=== PATIENT | female | born 1960 | race Caucasian/White ===

== ENCOUNTER 2018-09-04 06:18 | Emergency (ER) | payer OTHER ==
[2018-09-04 06:45] VITALS: BP 97/71; PULSE 96; TEMP 98.3; BMI 19.3
--- NOTE | 2018-09-04 06:54 | PDOC ---
History of Present Illness - General Chief Complaint: Respiratory Stated Complaint: SENT BY PCP Time Seen by Provider: 09/04/18 06:48 History Source: Patient - History of Present Illness Initial Comments: 09/04/18 06:51 58yoF hx of MVP presnets w/ sudden onset of SOB and epigastric pain on 08/22. Has been seeing multiple physicians for this and was sent by a senior network security architect to the ER for "CT r/o PE". Also is scheduled for a urea breath test, has been on an albuterol MDI wihout improveemnt in symptoms. No hx of AR, symptoms are constant, non-pleuritic. No travel, no hormones, no surgery, no syncope, no palps. Past History - Past Medical History Allergies/Adverse Reactions: Allergies Allergy/AdvReac Type Severity Reaction Status Date / Time amoxicillin [Amoxicillin] Allergy Rash Verified 09/04/18 06:38 clarithromycin [From Biaxin] Allergy Swelling Verified 09/04/18 06:38 dicloxacillin Allergy Verified 09/04/18 06:40 Home Medications: Ambulatory Orders Lidocaine 5% Top. Ointment [Xylocaine 5% Top. Ointment -] 1 applic TP QID #1 tube 11/09/15 Oxycodone HCl/Acetaminophen [Percocet 5/325 -] 1 tab PO Q4H PRN #10 tablet MDD 1 11/09/15 Anemia: No Asthma: No Cancer: No Cardiac Disorders: Yes (MITRAL VALVE PROLAPSE) CVA: No COPD: No CHF: No Dementia: No Diabetes: No (LOW BLOOD SUGAR) GI Disorders: No Disorders: No HTN: No Hypercholesterolemia: No Liver Disease: No Seizures: No Thyroid Disease: No - Surgical History Abdominal Surgery: No Appendectomy: No Cardiac Surgery: No Cholecystectomy: No Lung Surgery: No Neurologic Surgery: No Orthopedic Surgery: No - Immunization History Td Vaccination: Yes TDAP Vaccination: Yes Immunization Up to Date: Yes - Suicide/Smoking/Psychosocial Hx Smoking Status: No Smoking History: Never smoked Have you smoked in the past 12 months: No Number of Cigarettes Smoked Daily: 0 Information on smoking cessation initiated: No Hx Alcohol Use: No Drug/Substance Use Hx: No Substance Use Type: None Review of Systems - Review of Systems All Other Systems: Reviewed and Negative *Physical Exam - Vital Signs Last Vital Signs Temp Pulse Resp BP Pulse Ox 98.3 F 96 H 18 97/71 100 09/04/18 06:25 09/04/18 06:25 09/04/18 06:25 09/04/18 06:25 09/04/18 06:25 - Physical Exam Comments: 09/04/18 06:52 NAD, well appearing, anxious, thin woman MMM RRR CTABL, no w/r/r, no crackles soft NTND no edema A&O x 3. Moderate Sedation - Procedure Monitoring Vital Signs: Procedure Monitoring Vital Signs Temperature 98.3 F 09/04/18 06:25 Pulse Rate 96 H 09/04/18 06:25 Respiratory Rate 18 09/04/18 06:25 Blood Pressure 97/71 09/04/18 06:25 O2 Sat by Pulse Oximetry (%) 100 09/04/18 06:25 ED Treatment Course - RADIOLOGY Radiology Studies Ordered: Category Date Time Status CHEST CTA [CT] Urgent CT Scan 09/04/18 06:49 Ordered Medical Decision Making - Medical Decision Making 09/04/18 06:53 58yoF in good health undergoing extensive outaptient evaluation for sudden onset of epig pain and sob approximately 2 weeks ago. Sent by Dr. Souza ( pul) for CTA r/o PE. - labs - ekg - cta r/o PE - OK to DC for contiue outaptient f/u if negative. *DC/Admit/Observation/Transfer - Referrals Referrals: Tony Mclean MD [Primary Care Provider] - - Patient Instructions - Post Discharge Activity
[2018-09-04 08:29] LABS: BASO % 0.9 % (0-2.0); EOS % 2.5 % (0-4.5); HEMOGLOBIN 12.5 GM/dL (10.7-15.3); LYMPH % 29.9 % (8-40); MCH 31.5 pg (25.7-33.7); MCHC 34.7 g/dl (32.0-36.0); MEAN CELL VOLUME 90.8 fl (80-96); MEAN PLT VOLUME 8.3 fl (7.5-11.1); MONO % 9.6 % (3.8-10.2); NEUT % 57.1 % (42.8-82.8); PLATELET COUNT 199 K/MM3 (134-434); RBC 3.97 M/mm3 (3.60-5.2); RDW 13.6 % (11.6-15.6); WHITE BLOOD COUNT 4.3 K/mm3 (4.0-10.0)
[2018-09-04 08:33] LABS: ANION GAP 6 MMOL/L (8-16); BLOOD UREA NITROGEN 21 mg/dL (7-18); CALCIUM 8.6 mg/dL (8.5-10.1); CHLORIDE 108 mmol/L (98-107); CO2 26 mmol/L (21-32); CREATININE 0.6 mg/dL (0.55-1.3); GLUCOSE,RANDOM 84 mg/dL (74-106); POTASSIUM 4.1 mmol/L (3.5-5.1); SODIUM 139 mmol/L (136-145)
[2018-09-04 08:43] LABS: INR 1.11 (0.83-1.09); PROTHROMBIN TIME (PATIENT) 13.1 SEC (9.7-13.0)
[2018-09-04 08:46] LABS: ACTIVATED PTT 28.4 SECONDS (25.2-36.5)
--- NOTE | 2018-09-04 10:14 | PDOC ---
*Physical Exam - Vital Signs Last Vital Signs Temp Pulse Resp BP Pulse Ox 98.3 F 96 H 18 97/71 100 09/04/18 06:25 09/04/18 06:25 09/04/18 06:25 09/04/18 06:25 09/04/18 06:25 - Physical Exam Comments: 09/04/18 10:12 Vital signs normal Well-appearing, conversant, no acute distress. Slightly tearful and anxious when discussing the passing of her parents recently, otherwise nontoxic appearing. Lungs are clear, heart is regular ED Treatment Course - LABORATORY CBC & Chemistry Diagram: 09/04/18 08:00 09/04/18 08:00 - ADDITIONAL ORDERS Additional order review: Laboratory Results 09/04/18 09/04/18 08:00 08:00 PT with INR 13.10 H INR 1.11 H PTT (Actin FS) 28.4 Sodium 139 Potassium 4.1 Chloride 108 H Carbon Dioxide 26 Anion Gap 6 L BUN 21 H Creatinine 0.6 Creat Clearance w eGFR > 60 Random Glucose 84 Calcium 8.6 Creatine Kinase 95 Troponin I < 0.02 09/04/18 08:00 RBC 3.97 MCV 90.8 MCHC 34.7 RDW 13.6 MPV 8.3 Neutrophils % 57.1 Lymphocytes % 29.9 Monocytes % 9.6 Eosinophils % 2.5 Basophils % 0.9 Medical Decision Making - Medical Decision Making 09/04/18 10:12 Received signout on this 58-year-old female sent by PCP/supervisor brake repair to rule out PE with CAT scan. No clinical risk factors, no dynamically stable. Labs sent and are normal including troponin CTA of the chest showed no PE, some evidence of COPD/interstitial changes with right-sided lung nodule requiring outpatient follow-up, otherwise no acute pathology Patient requested follow-up of her abdominal ultrasound and echocardiogram performed yesterday, ultrasound does show some gallstones without evidence of acute pathology, echo shows no acute pathology. call placed to Dr. Souza to discuss d/c plan. 09/04/18 10:38 Second call placed, patient wants to leave Results of CAT scan, ultrasound, and echo discussed and she will follow-up with Dr. Mclean and Dr. Souza. Understands return criteria. *DC/Admit/Observation/Transfer Diagnosis at time of Disposition: Shortness of breath - Discharge Dispostion Disposition: HOME Condition at time of disposition: Stable - Referrals Referrals: Tony Mclean MD [Primary Care Provider] - Hardik Souza MD [Staff Physician] - - Patient Instructions Printed Discharge Instructions: DI for Shortness of Breath Additional Instructions: Activity as tolerated. Stay hydrated. As discussed, blood tests and a CAT scan showed no acute pathology, but follow- up imaging will be necessary. Continue your medications as previously prescribed by your physician. You should follow up with Dr. Mclean and Dr. Souza as soon as possible regarding today's emergency department visit. Return to the emergency department for any new or concerning symptoms, particularly worsening shortness of breath, persistent abdominal pain with vomiting or fevers or chills, chest pain. - Post Discharge Activity
--- NOTE | 2018-09-04 16:16 | EKG ---
Test Reason : Blood Pressure : / mmHG Vent. Rate : 075 BPM Atrial Rate : 075 BPM P-R Int : 152 ms QRS Dur : 088 ms QT Int : 382 ms P-R-T Axes : 082 045 076 degrees QTc Int : 426 ms POOR DATA QUALITY, INTERPRETATION MAY BE ADVERSELY AFFECTED NORMAL SINUS RHYTHM NORMAL ECG WHEN COMPARED WITH ECG OF 07-JUN-2008 14:05, NO SIGNIFICANT CHANGE WAS FOUND Confirmed by ARAMIS FRENCH, DANIEL ([id number]) on 09/04/2018 4:16:05 PM Referred By: Confirmed By:DANIEL SELF MD
== END 2018-09-04 11:25 | disposition home or self-care (01) ==
LOC: JER 06:18
DX: R06.02 Shortness of breath (principal)
CPT/HCPCS: 36415; 71275-TC; 80048; 82550; 84484; 85025; 85610; 85730; 93005; 93010; 99281-25

== ENCOUNTER 2022-07-09 04:30 | Day surgery (SDC) | payer OTHER ==
[2022-07-05 16:19] VITALS: BMI 19.2
[2022-07-09 08:37] VITALS: TEMP 98
[2022-07-09 11:09] VITALS: BP 120/55; PULSE 71; RESP 24
== END 2022-07-09 09:35 | disposition home or self-care (01) ==
LOC: JASU-ENDO 04:30
PROVIDERS: ATTEND Internal Medicine Gastroenterology
PROC: 0DBM8ZX Excision of Descending Colon, Via Natural or Artificial Opening Endoscopic, Diagnostic (ICD-10-PCS; principal; 2022-07-09 08:00)
DX: Z12.11 Encounter for screening for malignant neoplasm of colon (principal); K63.5 Polyp of colon; K57.30 Diverticulosis of large intestine without perforation or abscess without bleeding; K63.89 Other specified diseases of intestine; Z86.010 Personal history of colon polyps; Z83.71 Family history of colonic polyps
CPT/HCPCS: 82962; 88305-TC